=== PATIENT | male | born 1965 | race Caucasian/White ===

== ENCOUNTER 2017-05-11 16:11 | Inpatient (IN) | payer OTHER ==
[2017-05-11 18:51] VITALS: BMI 27.9
--- NOTE | 2017-05-11 21:17 | HP ---
COWS - Scale Resting Pulse: 0= [place] 80 or Below Sweatin=Flushed/Facial Moisture Restless Observation: 1= Difficult to Sit Still Pupil Size: 1= Pupils >than Normal Bone or Joint Aches: 4=Acute Joint/Muscle Pain Runny Nose/ Eye Tearin= Runny Nose/Eyes GI Upset > 30mins: 3= Vomiting/Diarrhea (vomiting x 2, diarrhea x 3) Tremor Observation: 4= Gross Tremor/Twitching Yawning Observation: 0= None Anxiety or Irritability: 2=Irritable/Anxious Goose Flesh Skin: 0=Smooth Skin COWS Score: 19 Admission ROS [facility] Chief Complaint: Opioid withdrawal symptoms Allergies/Adverse Reactions: Allergies Allergy/AdvReac Type Severity Reaction Status Date / Time No Known Allergies Allergy Verified 05/11/17 20:31 History of Present Illness: 51 years old male with a history of opioid dependence is admitted to detox. He has not been to detox before and reports insignificant period of sobriety. He has medical history of BPH, anxiety, depression and nicotine dependence. He denies suicidal ideation at this time. Exam Limitations: No Limitations - Ebola screening Have you traveled outside of the country in the last 21 days: No Have you had contact with anyone from an Ebola affected area: No Have you been sick,other than usual withdrawal symptoms: No Do you have a fever: No - Review of Systems Constitutional: Loss of Appetite, Night Sweats, Weakness EENT: reports: No Symptoms Reported Respiratory: reports: Cough Cardiac: reports: No Symptoms Reported GI: reports: Diarrhea, Nausea, Poor Appetite, Poor Fluid Intake, Vomiting, Abdominal cramping Musculoskeletal: reports: Back Pain, Joint Pain, Muscle Pain, Muscle Weakness Integumentary: reports: Flushing Neuro: reports: Headache, Tingling, Tremors Endocrine: reports: No Symptoms Reported Hematology: reports: No Symptoms Reported Psychiatric: reports: Orientated x3, Agitated, Anxious, Depressed Other Systems: Reviewed and Negative Patient History - Patient Medical History Hx Anemia: No Hx Asthma: No Hx Chronic Obstructive Pulmonary Disease (COPD): No Hx Cancer: No Hx Cardiac Disorders: No Hx Congestive Heart Failure: No Hx Hypertension: No Hx Hypercholesterolemia: No HX Cerebrovascular Accident: No Hx Seizures: No Hx Diabetes: No Hx Gastrointestinal Disorders: No Hx Liver Disease: No Hx Genitourinary Disorders: No Hx Sexually Transmitted Disorders: No Hx Renal Disease (ESRD): No Hx Thyroid Disease: No Hx Human Immunodeficiency Virus (HIV): No (Negative 2016) Hx Hepatitis C: No Hx Depression: Yes Hx Suicide Attempt: No Hx Bipolar Disorder: No Hx Schizophrenia: No - Patient Surgical History Past Surgical History: No Hx Neurologic Surgery: No Hx Cataract Extraction: No Hx Cardiac Surgery: No Hx Lung Surgery: No Hx Breast Surgery: No Hx Breast Biopsy: No Hx Abdominal Surgery: No Hx Appendectomy: No Hx Cholecystectomy: No Hx Genitourinary Surgery: No Hx Section: No Hx Orthopedic Surgery: No Anesthesia Reaction: No - PPD History Previous Implant?: Yes (positive PPD) Documented Results: Positive w/o proof Implanted On Prior R Admission?: No PPD to be Administered?: No - Reproductive History Patient is a Female of Child Bearing Age (11 -55 yrs old): No (male) - Smoking Cessation Smoking history: Current every day smoker Have you smoked in the past 12 months: Yes Aproximately how many cigarettes per day: 4 Hx Chewing Tobacco Use: No Initiated information on smoking cessation: Yes 'Breaking Loose' booklet given: 05/11/17 - Substance & Tx. History Hx Alcohol Use: No Hx Substance Use: Yes Substance Use Type: Heroin Hx Substance Use Treatment: No - Substances Abused Heroin Route: Inhalation Frequency: Daily Amount used: 3 bags Age of first use: 51 Date of Last Use: 05/11/17 Family Disease History - Family Disease History Family Disease History: [place]: Mother (Colon Ca - ), Other: Father ( Alcoholic - ), Brother (mental problem) Admission Physical Exam S - Vital Signs Vital Signs: Vital Signs - 24 hr 05/11/17 18:48 Temperature 97 F L Pulse Rate 70 Respiratory 20 Rate Blood Pressure 142/85 - Physical General Appearance: Yes: Moderate Distress HEENTM: Yes: Within Normal Limits, EOMI, Normal Voice, JEANETH Respiratory: Yes: Lungs Clear, Normal Breath Sounds, No Respiratory Distress Neck: Yes: Supple Breast: Yes: Breast Exam Deferred Cardiology: Yes: Regular Rhythm, Regular Rate, S1, S2 Abdominal: Yes: Normal Bowel Sounds, Soft Genitourinary: Yes: Within Normal Limits Back: Yes: Within Normal Limits Musculoskeletal: Yes: Back pain, Muscle Pain, Muscle weakness Extremities: Yes: Tremors Neurological: Yes: Alert, Normal Response Integumentary: Yes: Dry Lymphatic: Yes: Within Normal Limits - Diagnostic (1) Alcohol dependence with uncomplicated withdrawal Current Visit: Yes Status: Chronic (2) BPH (benign prostatic hyperplasia) Current Visit: Yes Status: Chronic (3) Anxiety Current Visit: Yes Status: Chronic (4) Depression Current Visit: Yes Status: Chronic (5) Nicotine dependence Current Visit: Yes Status: Chronic Cleared for Admission [facility] - Detox or Rehab [facility] Level of Care: Medically Managed Detox Regimen/Protocol: Librium S Breath Alcohol Content Breath Alcohol Content: 0 Urine Drug Screen - Results Drug Screen Negative: No Urine Drug Screen Results: OPI-Opiates
[2017-05-11] MEDS ORDERED: P-EPHED 60MG/TRIPROLIDI 2.5MG TABLET PO PRN (21:40)
[2017-05-11] MEDS ORDERED: NICOTINE POLACRILEX 2 MG GUM BC PRN (21:40)
[2017-05-11] MEDS ORDERED: MAGNESIUM CITRATE 300 ML BOTTLE PO PRN (21:40)
[2017-05-11] MEDS ORDERED: MAGNESIUM HYDROX 2400MG/30ML ORAL SUSPENSION 30 ML CUP PO PRN (21:40)
[2017-05-11] MEDS ORDERED: ACETAMINOPHEN 325 MG TABLET (FP) PO PRN (21:40)
[2017-05-11] MEDS ORDERED: LOPERAMIDE HCL 2 MG CAPSULE PO PRN (21:40)
[2017-05-11] MEDS ORDERED: MAG HYDROX/AL HYDROX/SIMETH 30 ML UNIT-DOSE CUP PO PRN (21:40)
[2017-05-11] MEDS ORDERED: chlordiazePOXIDE HCL 25 MG CAPSULE PO PRN (21:40)
[2017-05-11] MEDS ORDERED: IBUPROFEN 400 MG TABLET (FP) PO PRN (21:40)
[2017-05-11] MEDS ORDERED: guaiFENesin/D-METHORPHAN HB 10 ML UNIT-DOSE CUPS PO PRN (21:40)
[2017-05-11] MEDS ORDERED: MENTHOL/PHENOL 1 EACH UD MM PRN (21:40)
[2017-05-12 00:06] LABS: URINE APPEARANCE TURBID; URINE BILIRUBIN NEGATIVE (NEGATIVE); URINE BLOOD NEGATIVE (NEGATIVE); URINE COLOR YELLOW; URINE GLUCOSE (UA) NEGATIVE (NEGATIVE); URINE KETONE NEGATIVE (NEGATIVE); URINE LEUK ESTERASE NEGATIVE (NEGATIVE); URINE NITRITE NEGATIVE (NEGATIVE); URINE PROTEIN NEGATIVE (NEGATIVE); URINE UROBILINOGEN NEGATIVE mg/dL (0.2-1.0)
[2017-05-12] MEDS: chlordiazePOXIDE HCL 25 MG CAPSULE PO SCH ×2 (00:41→05:04)
[2017-05-12] MEDS: THIAMINE HCL 100 MG TABLET (FP) PO SCH ×2 (00:58→22:02)
[2017-05-12] MEDS ORDERED: METHADONE HCL 10 MG TABLET (FOR DETOX USE ONLY) PO ONE ×2 (09:18→23:00)
--- NOTE | 2017-05-12 09:26 | PN ---
[facility] Progress Note Note: DETOX REGIMEN CHANGED FROM LIBRIUM TO METHADONE PROTOCOL. PT ADMITTED PREVIOUS SHIFT AND REPORTS HEROIN DEPENDENCE. REPORTS ALCOHOL USE OF 2 CANS OF BEER SOME DAYS, NOT ON A REGULAR BASIS. LAST DRANK ABOUT A MONTH AGO. STATES HEROIN IS HIS PROBLEM NOW ALERT O X 3. NAD.
--- NOTE | 2017-05-12 09:29 | PN ---
[facility] COWS - Scale Resting Pulse: 0= [place] 80 or Below Sweatin= Chills/Flushing Restless Observation: 3= Extraneous Movement Pupil Size: 2= Moderately Dilated Bone or Joint Aches: 4=Acute Joint/Muscle Pain Runny Nose/ Eye Tearin= Nasal Congestion GI Upset > 30mins: 1= Stomach Cramp Tremor Observation of Outstretched Hands: 2= Slight Tremor Visible Yawning Observation: 1= 1-2x During Session Anxiety or Irritability: 2=Irritable/Anxious Goose Flesh Skin: 0=Smooth Skin COWS Score: 17 BHS Progress Note (SOAP) Subjective: ANXIETY,IRRITABILITY,SWEATS,INTERMITTENT SLEEP. Objective: 05/12/17 10:51 Vital Signs Temperature 98.3 F 05/12/17 09:09 Pulse Rate 63 05/12/17 09:09 Respiratory Rate 18 05/12/17 09:09 Blood Pressure 113/83 05/12/17 09:09 O2 Sat by Pulse Oximetry (%) Laboratory Last Values Sodium 140 mmol/L (136-145) 05/12/17 07:00 Potassium 3.9 mmol/L (3.5-5.1) 05/12/17 07:00 Chloride 106 mmol/L (98-107) 05/12/17 07:00 Carbon Dioxide 26 mmol/L (21-32) 05/12/17 07:00 Anion Gap 8 (8-16) 05/12/17 07:00 BUN 13 mg/dL (7-18) 05/12/17 07:00 Creatinine 0.9 mg/dL (0.7-1.3) 05/12/17 07:00 Creat Clearance w eGFR > 60 (>60) 05/12/17 07:00 Random Glucose 106 mg/dL (74-106) 05/12/17 07:00 Calcium 8.3 mg/dL (8.5-10.1) L 05/12/17 07:00 Total Bilirubin 0.9 mg/dL (0.2-1.0) 05/12/17 07:00 AST 14 U/L (15-37) L 05/12/17 07:00 ALT 26 U/L (12-78) 05/12/17 07:00 Alkaline Phosphatase 56 U/L (45-117) 05/12/17 07:00 Total Protein 7.0 g/dl (6.4-8.2) 05/12/17 07:00 Albumin 3.8 g/dl (3.4-5.0) 05/12/17 07:00 Urine Color Yellow 05/11/17 22:51 Urine Appearance Turbid 05/11/17 22:51 Urine pH 5.0 (5.0-8.0) 05/11/17 22:51 Ur Specific [place] 1.028 (1.001-1.035) 05/11/17 22:51 Urine Protein Negative (NEGATIVE) 05/11/17 22:51 Urine Glucose (UA) Negative (NEGATIVE) 05/11/17 22:51 Urine Ketones Negative (NEGATIVE) 05/11/17 22:51 Urine Blood Negative (NEGATIVE) 05/11/17 22:51 Urine Nitrite Negative (NEGATIVE) 05/11/17 22:51 Urine Bilirubin Negative (NEGATIVE) 05/11/17 22:51 Urine Urobilinogen Negative mg/dL (0.2-1.0) 05/11/17 22:51 Ur Leukocyte Esterase Negative (NEGATIVE) 05/11/17 22:51 Assessment: 05/12/17 10:51 WITHDRAWAL SX Plan: CONTINUE DETOX
[2017-05-12] MEDS: diazePAM 5 MG TABLET PO PRN ×2 (09:47→22:02)
[2017-05-12] MEDS: PRENATAL VITAMINS W/ FOLIC ACID TABLET (FP) PO SCH (09:48)
[2017-05-12] MEDS: TAMSULOSIN HCL 0.4 MG CAP.ER.24H (FP) PO SCH (09:49)
[2017-05-12] MEDS: NICOTINE 14 MG/24 HOURS TOPICAL PATCH TD SCH (09:49)
[2017-05-12 10:30] LABS: ALBUMIN 3.8 g/dl (3.4-5.0); ANION GAP 8 (8-16); BLOOD UREA NITROGEN 13 mg/dL (7-18); CALCIUM 8.3 mg/dL (8.5-10.1); CHLORIDE 106 mmol/L (98-107); CO2 26 mmol/L (21-32); CREATININE 0.9 mg/dL (0.7-1.3); GLUCOSE,RANDOM 106 mg/dL (74-106); POTASSIUM 3.9 mmol/L (3.5-5.1); SGOT/AST 14 U/L (15-37); SGPT/ALT 26 U/L (12-78); SODIUM 140 mmol/L (136-145)
[2017-05-12 10:36] LABS: ALK PHOS 56 U/L (45-117); BILIRUBIN,TOTAL 0.9 mg/dL (0.2-1.0); HEMATOCRIT 45.6 % (35.4-49); HEMOGLOBIN 14.9 GM/dL (11.7-16.9); MCH 30.6 pg (25.7-33.7); MCHC 32.7 g/dl (32.0-35.9); MEAN CELL VOLUME 93.3 fl (80-96); MEAN PLT VOLUME 8.4 fl (7.5-11.1); PLATELET COUNT 220 K/MM3 (134-434); RBC 4.88 M/mm3 (4.00-5.60); RDW 13.5 % (11.9-15.9); WHITE BLOOD COUNT 7.7 K/mm3 (4.0-10.0)
--- NOTE | 2017-05-12 10:45 | EKG ---
Test Reason : Blood Pressure : / mmHG Vent. Rate : 068 BPM Atrial Rate : 068 BPM P-R Int : 168 ms QRS Dur : 086 ms QT Int : 380 ms P-R-T Axes : -21 -19 002 degrees QTc Int : 404 ms NORMAL SINUS RHYTHM MODERATE VOLTAGE CRITERIA FOR LVH, MAY BE NORMAL VARIANT BORDERLINE ECG NO PREVIOUS ECGS AVAILABLE Confirmed by MELISA AGUILA MD ([id number]) on 05/12/2017 10:45:19 AM Referred By: Confirmed By:MELISA AGUILA MD
--- NOTE | 2017-05-12 18:26 | CONSULT ---
[facility] Psychiatric Consult - Data Date of interview: 05/12/17 Admission source: [facility] Identifying data: Pt. is a 51 year old male, single, and on SSI. This is patient 's first admission to [facility]. Pt. admitted to for heroin dependence. Substance Abuse History: Smoking Cessation. Smoking history: Current every day smoker. Have you smoked in the past 12 months: Yes. Aproximately how many cigarettes per day: 4. Hx Chewing Tobacco Use: No. Initiated information on smoking cessation: Yes. 'Breaking Loose' booklet given: 05/11/17. - Substance & Tx. History. Hx Alcohol Use: No. Hx Substance Use: Yes. Substance Use Type : Heroin. Hx Substance Use Treatment: No. - Substances Abused. Heroin. Route: Inhalation. Frequency: Daily. Amount used: 3 bags. Age of first use: 51. Date of Last Use: 05/11/17 Medical History: Denies. Psychiatric History: Pt. reports h/o one suicide attempt by hanging self at 40 years of age but was stopped. Pt. denies h/o psychiatric hospitalization, and OPC. Pt. denies suicidal and homicidal ideation. Physical/Sexual Abuse/Trauma History: Denies. Mental Status Exam - Mental Status Exam Alert and Oriented to: Time, Place, Person Cognitive Function: Good Patient Appearance: Unkempt Mood: Withdrawn Affect: Flat Patient Behavior: Sedated, Fatigued, Guarded Speech Pattern: Delayed, Slurred Voice Loudness: Moderately Soft/Quiet Thought Process: Goal Oriented Thought Disorder: Not Present Hallucinations: Denies Suicidal Ideation: Denies Homicidal Ideation: Denies Insight/Judgement: Poor Sleep: Fair Appetite: Fair Muscle strength/Tone: Normal Gait/Station: Other (Did not observe patient's gait.) Psychiatric Findings - Problem List ([place] 1, 2,3) (1) Opioid dependence with withdrawal Current Visit: Yes Status: Acute (2) Nicotine dependence Current Visit: Yes Status: Acute Qualifiers: Nicotine product type: cigarettes Substance use status: in withdrawal Qualified Code(s): F17.213 - Nicotine dependence, cigarettes, with withdrawal (3) Substance induced mood disorder Current Visit: No Status: Suspected - Initial Treatment Plan Initial Treatment Plan: Psychoeducation provided. Detoxification in progress. Observation.
[2017-05-12] MEDS ORDERED: chlordiazePOXIDE HCL 25 MG CAPSULE PO SCH (23:00)
[2017-05-13] MEDS: diazePAM 5 MG TABLET PO PRN ×3 (05:10→22:04)
[2017-05-13] MEDS: TAMSULOSIN HCL 0.4 MG CAP.ER.24H (FP) PO SCH (09:20)
[2017-05-13] MEDS ORDERED: METHADONE HCL 10 MG TABLET (FOR DETOX USE ONLY) PO ONE (10:00)
[2017-05-13] MEDS: NICOTINE 14 MG/24 HOURS TOPICAL PATCH TD SCH (10:06)
[2017-05-13] MEDS: PRENATAL VITAMINS W/ FOLIC ACID TABLET (FP) PO SCH (10:07)
--- NOTE | 2017-05-13 10:33 | PN ---
[facility] COWS - Scale Resting Pulse: 0= [place] 80 or Below Sweatin= Chills/Flushing Restless Observation: 3= Extraneous Movement Pupil Size: 2= Moderately Dilated Bone or Joint Aches: 4=Acute Joint/Muscle Pain Runny Nose/ Eye Tearin= Nasal Congestion GI Upset > 30mins: 0= None Tremor Observation of Outstretched Hands: 2= Slight Tremor Visible Yawning Observation: 1= 1-2x During Session Anxiety or Irritability: 2=Irritable/Anxious Goose Flesh Skin: 0=Smooth Skin COWS Score: 16 BHS Progress Note (SOAP) Subjective: SLIGHT TREMORS,ANXIETY,IRRITABILITY,SWEATS/CHILLS. Objective: 05/13/17 10:33 Vital Signs Temperature 98.7 F 05/13/17 09:02 Pulse Rate 79 05/13/17 09:02 Respiratory Rate 18 05/13/17 09:02 Blood Pressure 107/72 05/13/17 09:02 O2 Sat by Pulse Oximetry (%) Laboratory Last Values WBC 7.7 K/mm3 (4.0-10.0) 05/12/17 07:00 RBC 4.88 M/mm3 (4.00-5.60) 05/12/17 07:00 Hgb 14.9 GM/dL (11.7-16.9) 05/12/17 07:00 Hct 45.6 % (35.4-49) 05/12/17 07:00 MCV 93.3 fl (80-96) 05/12/17 07:00 MCH 30.6 pg (25.7-33.7) 05/12/17 07:00 MCHC 32.7 g/dl (32.0-35.9) 05/12/17 07:00 RDW 13.5 % (11.9-15.9) 05/12/17 07:00 Plt Count 220 K/MM3 (134-434) 05/12/17 07:00 MPV 8.4 fl (7.5-11.1) 05/12/17 07:00 Sodium 140 mmol/L (136-145) 05/12/17 07:00 Potassium 3.9 mmol/L (3.5-5.1) 05/12/17 07:00 Chloride 106 mmol/L (98-107) 05/12/17 07:00 Carbon Dioxide 26 mmol/L (21-32) 05/12/17 07:00 Anion Gap 8 (8-16) 05/12/17 07:00 BUN 13 mg/dL (7-18) 05/12/17 07:00 Creatinine 0.9 mg/dL (0.7-1.3) 05/12/17 07:00 Creat Clearance w eGFR > 60 (>60) 05/12/17 07:00 Random Glucose 106 mg/dL (74-106) 05/12/17 07:00 Calcium 8.3 mg/dL (8.5-10.1) L 05/12/17 07:00 Total Bilirubin 0.9 mg/dL (0.2-1.0) 05/12/17 07:00 AST 14 U/L (15-37) L 05/12/17 07:00 ALT 26 U/L (12-78) 05/12/17 07:00 Alkaline Phosphatase 56 U/L (45-117) 05/12/17 07:00 Total Protein 7.0 g/dl (6.4-8.2) 05/12/17 07:00 Albumin 3.8 g/dl (3.4-5.0) 05/12/17 07:00 Urine Color Yellow 05/11/17 22:51 Urine Appearance Turbid 05/11/17 22:51 Urine pH 5.0 (5.0-8.0) 05/11/17 22:51 Ur Specific [place] 1.028 (1.001-1.035) 05/11/17 22:51 Urine Protein Negative (NEGATIVE) 05/11/17 22:51 Urine Glucose (UA) Negative (NEGATIVE) 05/11/17 22:51 Urine Ketones Negative (NEGATIVE) 05/11/17 22:51 Urine Blood Negative (NEGATIVE) 05/11/17 22:51 Urine Nitrite Negative (NEGATIVE) 05/11/17 22:51 Urine Bilirubin Negative (NEGATIVE) 05/11/17 22:51 Urine Urobilinogen Negative mg/dL (0.2-1.0) 05/11/17 22:51 Ur Leukocyte Esterase Negative (NEGATIVE) 05/11/17 22:51 RPR Titer Nonreactive (NONREACTIVE) 05/12/17 07:00 Hepatitis C Antibody 0.3 s/co ratio (0.0-0.9) 05/11/17 07:00 Assessment: 05/13/17 10:33 WITHDRAWAL SX Plan: CONTINUE DETOX
[2017-05-13] MEDS: THIAMINE HCL 100 MG TABLET (FP) PO SCH (22:04)
[2017-05-13] MEDS ORDERED: chlordiazePOXIDE 5 MG CAPSULE PO SCH (23:00)
[2017-05-14] MEDS: diazePAM 5 MG TABLET PO PRN ×3 (05:51→22:02)
[2017-05-14] MEDS: TAMSULOSIN HCL 0.4 MG CAP.ER.24H (FP) PO SCH (09:05)
[2017-05-14] MEDS ORDERED: METHADONE HCL 5 MG TABLET (FOR DETOX USE ONLY) PO ONE (10:00)
[2017-05-14] MEDS: PRENATAL VITAMINS W/ FOLIC ACID TABLET (FP) PO SCH (10:05)
[2017-05-14] MEDS: NICOTINE 14 MG/24 HOURS TOPICAL PATCH TD SCH (10:07)
--- NOTE | 2017-05-14 11:55 | PN ---
B[facility] Progress Note (SOAP) Subjective: ANXIETY, SWEATS, SLIGHT IRRITABILITY. Objective: 05/14/17 11:54 Vital Signs Temperature 98.1 F 05/14/17 09:36 Pulse Rate 91 H 05/14/17 09:36 Respiratory Rate 18 05/14/17 09:36 Blood Pressure 109/73 05/14/17 09:36 O2 Sat by Pulse Oximetry (%) Laboratory Last Values WBC 7.7 K/mm3 (4.0-10.0) 05/12/17 07:00 RBC 4.88 M/mm3 (4.00-5.60) 05/12/17 07:00 Hgb 14.9 GM/dL (11.7-16.9) 05/12/17 07:00 Hct 45.6 % (35.4-49) 05/12/17 07:00 MCV 93.3 fl (80-96) 05/12/17 07:00 MCH 30.6 pg (25.7-33.7) 05/12/17 07:00 MCHC 32.7 g/dl (32.0-35.9) 05/12/17 07:00 RDW 13.5 % (11.9-15.9) 05/12/17 07:00 Plt Count 220 K/MM3 (134-434) 05/12/17 07:00 MPV 8.4 fl (7.5-11.1) 05/12/17 07:00 Sodium 140 mmol/L (136-145) 05/12/17 07:00 Potassium 3.9 mmol/L (3.5-5.1) 05/12/17 07:00 Chloride 106 mmol/L (98-107) 05/12/17 07:00 Carbon Dioxide 26 mmol/L (21-32) 05/12/17 07:00 Anion Gap 8 (8-16) 05/12/17 07:00 BUN 13 mg/dL (7-18) 05/12/17 07:00 Creatinine 0.9 mg/dL (0.7-1.3) 05/12/17 07:00 Creat Clearance w eGFR > 60 (>60) 05/12/17 07:00 Random Glucose 106 mg/dL (74-106) 05/12/17 07:00 Calcium 8.3 mg/dL (8.5-10.1) L 05/12/17 07:00 Total Bilirubin 0.9 mg/dL (0.2-1.0) 05/12/17 07:00 AST 14 U/L (15-37) L 05/12/17 07:00 ALT 26 U/L (12-78) 05/12/17 07:00 Alkaline Phosphatase 56 U/L (45-117) 05/12/17 07:00 Total Protein 7.0 g/dl (6.4-8.2) 05/12/17 07:00 Albumin 3.8 g/dl (3.4-5.0) 05/12/17 07:00 Urine Color Yellow 05/11/17 22:51 Urine Appearance Turbid 05/11/17 22:51 Urine pH 5.0 (5.0-8.0) 05/11/17 22:51 Ur Specific [place] 1.028 (1.001-1.035) 05/11/17 22:51 Urine Protein Negative (NEGATIVE) 05/11/17 22:51 Urine Glucose (UA) Negative (NEGATIVE) 05/11/17 22:51 Urine Ketones Negative (NEGATIVE) 05/11/17 22:51 Urine Blood Negative (NEGATIVE) 05/11/17 22:51 Urine Nitrite Negative (NEGATIVE) 05/11/17 22:51 Urine Bilirubin Negative (NEGATIVE) 05/11/17 22:51 Urine Urobilinogen Negative mg/dL (0.2-1.0) 05/11/17 22:51 Ur Leukocyte Esterase Negative (NEGATIVE) 05/11/17 22:51 RPR Titer Nonreactive (NONREACTIVE) 05/12/17 07:00 Hepatitis C Antibody 0.3 s/co ratio (0.0-0.9) 05/11/17 07:00 Assessment: 05/14/17 11:54 WITHDRAWAL SX Plan: CONTINUE DETOX
[2017-05-14] MEDS: THIAMINE HCL 100 MG TABLET (FP) PO SCH (22:02)
[2017-05-14] MEDS ORDERED: chlordiazePOXIDE HCL 10 MG CAPSULE PO SCH (23:00)
[2017-05-15] MEDS: diazePAM 5 MG TABLET PO PRN (05:41)
[2017-05-15] MEDS ORDERED: METHADONE HCL 5 MG TABLET (FOR DETOX USE ONLY) PO ONE (10:00)
[2017-05-15] MEDS: TAMSULOSIN HCL 0.4 MG CAP.ER.24H (FP) PO SCH (10:04)
[2017-05-15] MEDS: NICOTINE 14 MG/24 HOURS TOPICAL PATCH TD SCH (10:04)
[2017-05-15] MEDS: PRENATAL VITAMINS W/ FOLIC ACID TABLET (FP) PO SCH (10:04)
[2017-05-15] MEDS: AMMONIUM LACTATE 12% LOTION 225 GM BOTTLE TP SCH ×2 (14:08→22:03)
--- NOTE | 2017-05-15 14:21 | PN ---
[facility] Progress Note (SOAP) Subjective: Nausea, Diarrhea, Sweating. Objective: PT. A & O X 3, OBSERVED AMBULATING ON UNIT. NO ACUTE DISTRESS. 05/15/17 14:19 Vital Signs Temperature 98.1 F 05/15/17 13:12 Pulse Rate 86 05/15/17 13:12 Respiratory Rate 18 05/15/17 13:12 Blood Pressure 106/70 05/15/17 13:12 O2 Sat by Pulse Oximetry (%) Laboratory Tests 05/11/17 05/11/17 05/12/17 07:00 22:51 07:00 WBC 7.7 RBC 4.88 Hgb 14.9 Hct 45.6 MCV 93.3 MCH 30.6 MCHC 32.7 RDW 13.5 Plt Count 220 MPV 8.4 Sodium Potassium Chloride Carbon Dioxide Anion Gap BUN Creatinine Creat Clearance w eGFR Random Glucose Calcium Total Bilirubin AST ALT Alkaline Phosphatase Total Protein Albumin Urine Color Yellow Urine Appearance Turbid Urine pH 5.0 Ur Specific [place] 1.028 Urine Protein Negative Urine Glucose (UA) Negative Urine Ketones Negative Urine Blood Negative Urine Nitrite Negative Urine Bilirubin Negative Urine Urobilinogen Negative Ur Leukocyte Esterase Negative RPR Titer Hepatitis C Antibody 0.3 05/12/17 05/12/17 07:00 07:00 WBC RBC Hgb Hct MCV MCH MCHC RDW Plt Count MPV Sodium 140 Potassium 3.9 Chloride 106 Carbon Dioxide 26 Anion Gap 8 BUN 13 Creatinine 0.9 Creat Clearance w eGFR > 60 Random Glucose 106 Calcium 8.3 L Total Bilirubin 0.9 AST 14 L ALT 26 Alkaline Phosphatase 56 Total Protein 7.0 Albumin 3.8 Urine Color Urine Appearance Urine pH Ur Specific [place] Urine Protein Urine Glucose (UA) Urine Ketones Urine Blood Urine Nitrite Urine Bilirubin Urine Urobilinogen Ur Leukocyte Esterase RPR Titer Nonreactive Hepatitis C Antibody LABS NOTED. Assessment: 05/15/17 14:19 WITHDRAWAL SYMPTOMS. Plan: CONTINUE DETOX.
[2017-05-15 21:47] VITALS: TEMP 96.9
[2017-05-15] MEDS: THIAMINE HCL 100 MG TABLET (FP) PO SCH (22:04)
[2017-05-16 06:00] VITALS: BP 114/71; PULSE 63
[2017-05-16] MEDS: TAMSULOSIN HCL 0.4 MG CAP.ER.24H (FP) PO SCH (07:44)
[2017-05-16] MEDS ORDERED: METHADONE HCL 10 MG TABLET (FOR DETOX USE ONLY) PO ONE (10:00)
[2017-05-16] MEDS: NICOTINE 14 MG/24 HOURS TOPICAL PATCH TD SCH (10:38)
[2017-05-16] MEDS: AMMONIUM LACTATE 12% LOTION 225 GM BOTTLE TP SCH (10:38)
[2017-05-16] MEDS: PRENATAL VITAMINS W/ FOLIC ACID TABLET (FP) PO SCH (10:38)
--- NOTE | 2017-05-16 12:37 | DS ---
[facility] Detox Discharge Summary Admission Date: 05/11/17 Discharge Date: 05/16/17 - History Present History: Opioid Dependence Pertinent Past History: BPH PPD Positive - Physical Exam Results Vital Signs: Vital Signs Temperature 96.9 F L 05/16/17 06:00 Pulse Rate 63 05/16/17 06:00 Respiratory Rate 18 05/16/17 06:00 Blood Pressure 114/71 05/16/17 06:00 O2 Sat by Pulse Oximetry (%) Pertinent Admission Physical Exam Findings: Withdrawal symptoms Laboratory Tests 05/11/17 05/11/17 05/12/17 07:00 22:51 07:00 WBC 7.7 RBC 4.88 Hgb 14.9 Hct 45.6 MCV 93.3 MCH 30.6 MCHC 32.7 RDW 13.5 Plt Count 220 MPV 8.4 Sodium Potassium Chloride Carbon Dioxide Anion Gap BUN Creatinine Creat Clearance w eGFR Random Glucose Calcium Total Bilirubin AST ALT Alkaline Phosphatase Total Protein Albumin Urine Color Yellow Urine Appearance Turbid Urine pH 5.0 Ur Specific [place] 1.028 Urine Protein Negative Urine Glucose (UA) Negative Urine Ketones Negative Urine Blood Negative Urine Nitrite Negative Urine Bilirubin Negative Urine Urobilinogen Negative Ur Leukocyte Esterase Negative RPR Titer Hepatitis C Antibody 0.3 05/12/17 05/12/17 07:00 07:00 WBC RBC Hgb Hct MCV MCH MCHC RDW Plt Count MPV Sodium 140 Potassium 3.9 Chloride 106 Carbon Dioxide 26 Anion Gap 8 BUN 13 Creatinine 0.9 Creat Clearance w eGFR > 60 Random Glucose 106 Calcium 8.3 L Total Bilirubin 0.9 AST 14 L ALT 26 Alkaline Phosphatase 56 Total Protein 7.0 Albumin 3.8 Urine Color Urine Appearance Urine pH Ur Specific [place] Urine Protein Urine Glucose (UA) Urine Ketones Urine Blood Urine Nitrite Urine Bilirubin Urine Urobilinogen Ur Leukocyte Esterase RPR Titer Nonreactive Hepatitis C Antibody Labs noted - Treatment Hospital Course: Detox Protocol Followed, Detoxed Safely, Responded well, Discharged Condition Good - Medication Discharge Medications: Ambulatory Orders Tamsulosin HCl [Flomax] 0.4 mg PO DAILY 05/11/17 - Diagnosis (1) PPD positive Status: Chronic (2) Nicotine dependence Status: Chronic Qualifiers: Nicotine product type: cigarettes Substance use status: in withdrawal Qualified Code(s): F17.213 - Nicotine dependence, cigarettes, with withdrawal (3) Opioid dependence with withdrawal Status: Acute (4) Anxiety Status: Chronic (5) BPH (benign prostatic hyperplasia) Status: Chronic Qualifiers: Lower urinary tract symptom presence: unspecified whether lower urinary tract symptoms present Qualified Code(s): N40.0 - Benign prostatic hyperplasia without lower urinary tract symptoms (6) Depression Status: Chronic Qualifiers: Depression Type: unspecified Qualified Code(s): F32.9 - Major depressive disorder, single episode, unspecified (7) Substance induced mood disorder Status: Acute - AMA Did Patient Leave Against Medical Advice: No
[2017-05-17] MEDS ORDERED: METHADONE HCL 5 MG TABLET (FOR DETOX USE ONLY) PO ONE (06:00)
== END 2017-05-16 09:25 | disposition home or self-care (01) | DRG 773 ==
LOC: YASAS 16:11 → Y3N 20:02
PROVIDERS: ADMIT Internal Medicine; ATTEND Internal Medicine
PROC: HZ2ZZZZ Detoxification Services for Substance Abuse Treatment (ICD-10-PCS; principal; 2017-05-11)
DX: F11.23 Opioid dependence with withdrawal (principal); F17.213 Nicotine dependence, cigarettes, with withdrawal; F32.9 Major depressive disorder, single episode, unspecified; F19.24 Other psychoactive substance dependence with psychoactive substance-induced mood disorder; F41.9 Anxiety disorder, unspecified; N40.0 Benign prostatic hyperplasia without lower urinary tract symptoms; R76.11 Nonspecific reaction to tuberculin skin test without active tuberculosis
CPT/HCPCS: 36415; 71046-TC; 80053; 81003; 85027; 86593; 86803; 93005; 93010